=== PATIENT | female | born 1955 | race Two or more races ===

== ENCOUNTER 2018-04-02 10:01 | Day surgery (SDC) | payer MEDICARE, OTHER ==
[2018-04-02] MEDS ORDERED: traMADol 50 MG TAB PO ×2 (10:30)
[2018-04-02] MEDS ORDERED: ONDANSETRON 4 MG INJ IV (10:30)
[2018-04-02] MEDS: LACTATED RINGER'S 1,000 ML (ENTER RATE) IV* (10:50)
[2018-04-02] MEDS ORDERED: CEFAZOLIN 1 GM INJ (11:54)
[2018-04-02] MEDS ORDERED: NEOSTIGMINE 3 MG/3 ML SYRINGE (11:54)
[2018-04-02] MEDS ORDERED: ROCURONIUM 50 MG INJ (11:54)
[2018-04-02] MEDS ORDERED: PROPOFOL 20 ML (11:54)
[2018-04-02] MEDS ORDERED: FENTAnyl 50 MCG/ML VIAL (11:54)
[2018-04-02] MEDS ORDERED: MIDAZOLAM 1 MG/ML 2 ML INJ (11:54)
[2018-04-02] MEDS ORDERED: GLYCOPYRROLATE 0.4 MG INJ (11:54)
[2018-04-02] MEDS ORDERED: DEXAMETHASONE 4 MG/ML 1 ML INJ (11:55)
[2018-04-02] MEDS ORDERED: ONDANSETRON 4 MG INJ (11:55)
[2018-04-02] MEDS ORDERED: CEFAZOLIN 2 GM/50 ML (PMX) 50 ML IVPB (12:00)
[2018-04-02] MEDS ORDERED: ALBUTEROL 0.083% (NEB) 2.5 MG/3 ML AMP HHN (13:00)
[2018-04-02] MEDS ORDERED: DIPHENHYDRAMINE 50 MG INJ IV (13:00)
[2018-04-02] MEDS ORDERED: LABETALOL HCL 20MG INJ IV (13:00)
[2018-04-02] MEDS ORDERED: MIDAZOLAM 1 MG/ML 2 ML INJ IV (13:00)
[2018-04-02] MEDS ORDERED: OXYCODONE/ACETAMINOPHEN (5/325) TAB PO (13:00)
[2018-04-02] MEDS ORDERED: FENTAnyl 50 MCG/ML VIAL IV ×2 (13:00)
[2018-04-02] MEDS ORDERED: HYDROmorphONE 1 MG/5 ML IV SYRINGE IV (13:00)
[2018-04-02] MEDS ORDERED: hydrALAzine 20 MG INJ IV (13:00)
[2018-04-02] MEDS ORDERED: EPHEDrine SULFATE 50 MG/5 ML SYG IV (13:00)
[2018-04-02] MEDS ORDERED: MEPERIDINE 25 MG INJ IV (13:00)
[2018-04-02] MEDS ORDERED: TRIMETHOBENZAMIDE 100 MG/ML VIAL IM (13:00)
[2018-04-02] MEDS ORDERED: IPRATROPIUM (NEB) 0.5 MG/2.5 ML AMP HHN (13:00)
[2018-04-02] MEDS: LIDOCAINE 1% (MDV) 20 ML INJ (13:10)
[2018-04-02] MEDS: TRIAMCINOLONE ACET 40 MG/ML INJ (13:10)
[2018-04-02] MEDS ORDERED: LABETALOL HCL 20MG INJ (13:35)
[2018-04-02] MEDS ORDERED: KETOROLAC 30 MG INJ (13:36)
[2018-04-02] MEDS ORDERED: SUGAMMADEX SODIUM 200 MG/2 ML VIAL IV (13:39)
[2018-04-02] MEDS: HYDROmorphONE 1 MG/5 ML IV SYRINGE IV ×2 (14:12→14:21)
[2018-04-02] MEDS: FENTAnyl 50 MCG/ML VIAL IV (14:26)
[2018-04-02] MEDS: ONDANSETRON 4 MG INJ IV (14:48)
[2018-04-02] MEDS: OXYCODONE/ACETAMINOPHEN (5/325) TAB PO (14:54)
[2018-04-04] MEDS ORDERED: INFLUENZA VIRUS VACCINE 0.5 ML (DISPENSING) IM* (09:00)
== END 2018-04-02 16:53 | disposition home or self-care (01) ==
LOC: SDS 10:01
DX: M23.222 Derangement of posterior horn of medial meniscus due to old tear or injury, left knee (principal); M94.262 Chondromalacia, left knee; I10 Essential (primary) hypertension; I25.10 Atherosclerotic heart disease of native coronary artery without angina pectoris
CPT/HCPCS: 29881